=== PATIENT | male | born 1975 | race Caucasian/White ===

== ENCOUNTER 2017-01-23 08:26 | Emergency (ER) | payer BC ==
[~2017-01-23] VITALS: Ht 193 cm; Wt 131.8 kg
[~2017-01-23 08:26] MED LIST: BACTRIM DS 8001 TAB PO; CEPHALEXIN250 M1 PO; CEPHALEXIN500 M1 PO; HUMALOG PEN100 U/ML SC; HUMALOG100 U/ML SC; LANTUS100 U/ML SC; LORTAB 5/500 501 TAB PO; METFORMIN1000 MG PO; METFORMIN500 MG PO; NO HOME MEDICATIONS
[2017-01-23 08:34] VITALS: BP 135/93; PULSE 77; TEMP 98.6
[2017-01-23] MEDS ORDERED: GLUCOPHAGE1000 MG PO (08:37)
[2017-01-23 09:23] LABS: BASO % 0.4 % (0.0-2.0); EOS # 0.2 (0.0-0.7); EOS % 2.5 % (0-4.0); GRAN # 4.8 (1.4-6.5); GRAN % 62.4 % (42.2-75.2); HEMATOCRIT 41.2 % (42.0-52.0); HEMOGLOBIN 14.7 g/dl (13.5-18.0); LYMPH # 2.2 (1.2-3.4); LYMPH % 28.8 % (20.0-51.0); MEAN CELL VOLUME 79 fl (80.0-100.0); MEAN CORPUSCULAR HEMOGLOBIN 28 pg (27.0-31.0); MEAN CORPUSCULAR HGB CONC 36 g/dl (33.0-37.0); MEAN PLATELET VOLUME 11.3 fl (7.4-10.4); MONO # 0.4 (0.1-0.6); MONO % 5.6 % (1.7-9.3); PLATELET COUNT 207 K/mm3 (130-400); REDCELL DISTRIBUTION WIDTH-CV 12.8 % (11.5-14.5); WHITE BLOOD COUNT 7.7 K/mm3 (4.8-10.8)
[2017-01-23 09:36] LABS: ALANINE AMINOTRANSFERASE 37 U/L (21-72); ALBUMIN 4.4 gm/dL (3.5-5.0); ALKALINE PHOSPHATASE 77 U/L (50-136); ANION GAP 14 mmol/L (7-16); BILIRUBIN,TOTAL 0.6 mg/dL (0.0-1.0); BLOOD UREA NITROGEN 27 mg/dL (9-20); CALCIUM 9.3 mg/dL (8.4-10.2); CARBON DIOXIDE 20 mmol/L (22-30); CHLORIDE 98 mmol/L (98-107); CREATININE, serum 0.72 mg/dL (0.66-1.25); MAGNESIUM 1.7 mg/dL (1.6-2.3); POTASSIUM 4.5 mmol/L (3.4-5.0); SODIUM 132 mmol/L (137-145); TOTAL PROTEIN 7.5 gm/dL (6.4-8.2)
[2017-01-23 09:40] LABS: GLUCOSE 505 mg/dL (74-106)
[2017-01-23 10:00] LABS: PH 5 (5-8); SQUAMOUS EPITHELIAL None Seen /hpf; URINE APPEARANCE Clear; URINE BACTERIA None Seen /hpf; URINE BILIRUBIN Negative (NEGATIVE); URINE BLOOD Negative (NEGATIVE); URINE COLOR Straw; URINE GLUCOSE 3+ (NEGATIVE); URINE KETONE 1+ (NEGATIVE); URINE RBC 0-2 /hpf; URINE UROBILINOGEN Negative (NEGATIVE); URINE WBC 0-2 /hpf
== END 2017-01-23 12:14 | disposition home or self-care (01) ==
LOC: COL.ER 08:26
PROVIDERS: Physician Assistant
DX: E11.65 Type 2 diabetes mellitus with hyperglycemia (principal); Z79.84 Long term (current) use of oral hypoglycemic drugs
CPT/HCPCS: J1815; J7030

== ENCOUNTER → 2018-02-21 | Outpatient (REF) ==
[~2018-02-21] MED LIST changes: +GLUCOPHAGE1000 MG PO
== END ==
LOC: ZLAB.WCH 08:37
DX: Z01.89 Encounter for other specified special examinations (principal)

== ENCOUNTER → 2018-09-19 | Outpatient (REF) | LOC: ZLAB.WCH 09:05 | DX: Z01.89 Encounter for other specified special examinations (principal) ==